=== PATIENT | male | born 1990 | race Caucasian/White ===

== ENCOUNTER 2023-09-01 10:19 | Emergency (ER) | payer OTHER ==
[~2023-09-01] VITALS: Ht 180.3 cm; Wt 86.2 kg
[2023-09-01] MEDS ORDERED: TRIA15CR3 TOP (11:12)
[2023-09-01] MEDS ORDERED: Prednisone20 MG PO ×2 (11:12→11:13)
== END 2023-09-01 11:15 | disposition home or self-care (01) ==
LOC: ER 10:19
DX: L25.5 Unspecified contact dermatitis due to plants, except food (principal); Z79.52 Long term (current) use of systemic steroids; Z79.899 Other long term (current) drug therapy
CPT/HCPCS: 99282